=== PATIENT | female | born 1980 | race Caucasian/White ===

== ENCOUNTER 2016-11-07 13:47 | Emergency (ER) | payer MEDICAID ==
[2016-11-07 14:34] LABS: BASOPHILS 0.8 % (0.0-2.0); EOSINOPHILS 1.9 % (0-7); HEMATOCRIT 39.1 % (36.0-48.0); HEMOGLOBIN 13.4 g/dL (12-16); IMMATURE GRANULOCYTES 0.2 % (0-5); LYMPHOCYTES 43.5 % (15-50); MCH 31.4 pg (26.0-34.0); MCHC 34.3 g/dL (31.0-37.0); MCV 91.6 fL (80.0-100.0); MEAN PLATELET VOLUME 10.8 fL (7.4-10.4); MONOCYTES 6.3 % (2-11); NEUTROPHILS 47.3 % (40-80); RBC 4.27 10x6/uL (4.00-5.40); RDW 13.7 % (11.5-14.5); WBC 6.2 10x3/uL (4.8-10.8)
[2016-11-07 14:35] LABS: PLATELET COUNT 232 10x3/uL (130-400)
[2016-11-07 14:58] LABS: ALBUMIN 3.9 g/dL (3.4-5.0); ALKALINE PHOSPHATASE 47 U/L (46-116); ALT (SGPT) 21 U/L (10-68); BILIRUBIN - TOTAL 0.47 mg/dL (0.2-1.3); CALC OSMOLALITY 281 mosm/kg (275-300); CALCIUM 9.4 mg/dL (8.5-10.1); CARBON DIOXIDE 27.6 mmol/L (21.0-32.0); CHLORIDE - SERUM 105 mmol/L (98-107); CREATININE - SERUM 0.9 mg/dL (0.6-1.3); POTASSIUM - SERUM 3.3 mmol/L (3.5-5.1); PROTEIN - SERUM 7.7 g/dL (6.4-8.2); SODIUM 143 mmol/L (136-145); UREA NITROGEN 9 mg/dL (7-18); eGFR NON AFRICAN AMERICAN 76 mL/min (90-120)
[2016-11-07 15:01] LABS: GLUCOSE 60 mg/dL (74-106)
[2016-11-07 16:59] LABS: APPEARANCE CLEAR (CLEAR); BILIRUBIN NEGATIVE (NEGATIVE); COLOR YELLOW (YELLOW); GLUCOSE NEGATIVE (NEGATIVE); KETONE NEGATIVE (NEGATIVE); LEUKOCYTE ESTERASE NEGATIVE (NEGATIVE); NITRITE NEGATIVE (NEGATIVE); PROTEIN NEGATIVE (NEGATIVE); UROBILINOGEN NORMAL (NORMAL)
[2016-11-07 17:03] LABS: HCG URINE NEGATIVE (NEGATIVE)
== END 2016-11-07 17:22 | disposition home or self-care (01) ==
LOC: D.ER 13:47
PROVIDERS: Emergency Medicine
DX: F41.9 Anxiety disorder, unspecified (principal); F17.200 Nicotine dependence, unspecified, uncomplicated

== ENCOUNTER 2017-08-19 01:25 | Emergency (ER) | payer MEDICAID ==
[2017-08-19 01:55] LABS: EOSINOPHILS 4.6 % (0-7); HEMATOCRIT 38.1 % (36.0-48.0); HEMOGLOBIN 12.9 g/dL (12-16); IMMATURE GRANULOCYTES 0.2 % (0-5); LYMPHOCYTES 46.5 % (15-50); MCH 31.6 pg (26.0-34.0); MCHC 33.9 g/dL (31.0-37.0); MCV 93.4 fL (80.0-100.0); MEAN PLATELET VOLUME 10.8 fL (7.4-10.4); MONOCYTES 6.3 % (2-11); NEUTROPHILS 41.4 % (40-80); RBC 4.08 10x6/uL (4.00-5.40); RDW 13.3 % (11.5-14.5); WBC 6.1 10x3/uL (4.8-10.8)
[2017-08-19 01:57] LABS: PLATELET COUNT 179 10x3/uL (130-400)
[2017-08-19 02:08] LABS: ALBUMIN 3.7 g/dL (3.4-5.0); ALKALINE PHOSPHATASE 69 U/L (46-116); ALT (SGPT) 20 U/L (10-68); BILIRUBIN - TOTAL 0.26 mg/dL (0.2-1.3); CALC OSMOLALITY 281 mosm/kg (275-300); CARBON DIOXIDE 29.6 mmol/L (21.0-32.0); CHLORIDE - SERUM 105 mmol/L (98-107); CREATININE - SERUM 0.9 mg/dL (0.6-1.3); GLUCOSE 94 mg/dL (74-106); POTASSIUM - SERUM 3.8 mmol/L (3.5-5.1); PROTEIN - SERUM 7.5 g/dL (6.4-8.2); SODIUM 142 mmol/L (136-145); UREA NITROGEN 10 mg/dL (7-18); eGFR NON AFRICAN AMERICAN 75 mL/min (90-120)
[2017-08-19 02:11] LABS: CREATINE KINASE 61 UL (21-215); TROPONIN-I < 0.017 ng/mL (0.000-0.060)
[2017-08-19 02:19] LABS: AMYLASE - SERUM 73 U/L (25-115); LIPASE 112 U/L (73-393)
== END 2017-08-19 04:16 | disposition home or self-care (01) ==
LOC: D.ER 01:25
PROVIDERS: Family Medicine
DX: R07.89 Other chest pain (principal)

== ENCOUNTER 2019-01-03 14:19 | Emergency (ER) | payer MEDICAID ==
[~2019-01-03] VITALS: Ht 175.3 cm; Wt 51.4 kg
[2019-01-03 14:25] VITALS: Ht 175.3 cm; Wt 51.4 kg
[2019-01-03] MEDS ORDERED: ULTRAM50 MG PO (14:27)
[2019-01-03] MEDS ORDERED: GABAPENTIN100 MG PO (14:28)
[2019-01-03] MEDS ORDERED: VALIUM 2 MG TAB2 MG PO (15:33)
[2019-01-03] MEDS ORDERED: EC-NAPROSYN500 MG PO (15:34)
[2019-01-03 16:15] VITALS: BP 97/64
== END 2019-01-03 16:15 | disposition home or self-care (01) ==
LOC: D.ER 14:19
DX: S49.91XA Unspecified injury of right shoulder and upper arm, initial encounter (principal); X58.XXXA Exposure to other specified factors, initial encounter; Y93.89 Activity, other specified; Y92.019 Unspecified place in single-family (private) house as the place of occurrence of the external cause; S16.1XXA Strain of muscle, fascia and tendon at neck level, initial encounter; M62.838 Other muscle spasm

== ENCOUNTER 2019-04-16 16:52 | Emergency (ER) | payer MEDICAID ==
[~2019-04-16] VITALS: Ht 175.3 cm; Wt 50.9 kg
[~2019-04-16 16:52] MED LIST: EC-NAPROSYN500 MG PO; GABAPENTIN100 MG PO; ULTRAM50 MG PO; VALIUM 2 MG TAB2 MG PO
[2019-04-16 16:55] VITALS: Ht 175.3 cm; Wt 50.9 kg
[2019-04-16 17:56] LABS: BASOPHILS 0.2 % (0-2); HEMOGLOBIN 12.9 g/dL (12-16); IMMATURE GRANULOCYTES 0.1 % (0-5); LYMPHOCYTES 7.1 % (15-50); MCH 31.5 pg (26.0-34.0); MCHC 33.9 g/dL (31.0-37.0); MCV 92.9 fL (80.0-100.0); MEAN PLATELET VOLUME 10.8 fL (7.4-10.4); MONOCYTES 3.5 % (2-11); NEUTROPHILS 87.1 % (40-80); PLATELET COUNT 184 10x3/uL (130-400); RBC 4.09 10x6/uL (4.00-5.40); RDW 13.8 % (11.5-14.5); WBC 9.7 10x3/uL (4.8-10.8)
[2019-04-16 18:02] LABS: ALBUMIN 3.7 g/dL (3.4-5.0); ALKALINE PHOSPHATASE 61 U/L (46-116); ALT (SGPT) 17 U/L (10-68); BILIRUBIN - TOTAL 0.54 mg/dL (0.2-1.3); CALC OSMOLALITY 283 mosm/kg (275-300); CALCIUM 8.3 mg/dL (8.5-10.1); CARBON DIOXIDE 28.6 mmol/L (21.0-32.0); CHLORIDE - SERUM 107 mmol/L (98-107); CREATININE - SERUM 0.7 mg/dL (0.6-1.3); GLUCOSE 91 mg/dL (74-106); POTASSIUM - SERUM 3.6 mmol/L (3.5-5.1); PROTEIN - SERUM 7.1 g/dL (6.4-8.2); SODIUM 143 mmol/L (136-145); UREA NITROGEN 11 mg/dL (7-18); eGFR NON AFRICAN AMERICAN > 90 mL/min (90-120)
[2019-04-16 18:03] LABS: AMYLASE - SERUM 66 U/L (25-115); LIPASE 63 U/L (73-393)
[2019-04-16 18:04] LABS: TROPONIN-I < 0.017 ng/mL (0.000-0.060)
[2019-04-16 18:45] LABS: APPEARANCE CLEAR (CLEAR); BILIRUBIN NEGATIVE (NEGATIVE); COLOR YELLOW (YELLOW); GLUCOSE NEGATIVE (NEGATIVE); KETONE NEGATIVE (NEGATIVE); NITRITE NEGATIVE (NEGATIVE); PROTEIN NEGATIVE (NEGATIVE); SPECIFIC GRAVITY 1.015 (1.005-1.020); UROBILINOGEN NORMAL (NORMAL)
[2019-04-16] MEDS ORDERED: LOMOTIL 2.5-0.1 EAC1 PO (20:28)
[2019-04-16] MEDS ORDERED: FLAGYL500 MG PO (20:28)
[2019-04-16] MEDS ORDERED: CIPRO500 MG PO (20:28)
[2019-04-16 20:39] VITALS: BP 99/65
== END 2019-04-16 21:30 | disposition home or self-care (01) ==
LOC: D.ER 16:52
PROVIDERS: Emergency Medicine
DX: K52.9 Noninfective gastroenteritis and colitis, unspecified (principal)

== ENCOUNTER 2019-06-09 09:29 | Inpatient (IN) | payer SELFPAY ==
[~2019-06-09] VITALS: Ht 175.3 cm; Wt 48.6 kg
[~2019-06-09 09:29] MED LIST changes: +CIPRO500 MG PO; +FLAGYL500 MG PO; +LOMOTIL 2.5-0.1 EAC1 PO
[2019-06-09] MEDS ORDERED: XANAX1 MG PO (09:38)
[2019-06-09] MEDS ORDERED: TRAZODONE HCL150 MG PO (09:39)
[2019-06-09] MEDS ORDERED: TRILEPTAL300 MG PO (09:39)
[2019-06-09] MEDS ORDERED: MOBIC7.5 MG PO (09:40)
[2019-06-09 10:15] LABS: BASOPHILS 0.9 % (0-2); EOSINOPHILS 3.6 % (0-7); HEMATOCRIT 37.7 % (36.0-48.0); HEMOGLOBIN 13.2 g/dL (12-16); LYMPHOCYTES 35.9 % (15-50); MCV 91.5 fL (80.0-100.0); MEAN PLATELET VOLUME 10.5 fL (7.4-10.4); MONOCYTES 5.1 % (2-11); NEUTROPHILS 54.5 % (40-80); RBC 4.12 10x6/uL (4.00-5.40); RDW 13.7 % (11.5-14.5); WBC 5.5 10x3/uL (4.8-10.8)
[2019-06-09 10:21] LABS: PLATELET COUNT 222 10x3/uL (130-400)
[2019-06-09 10:28] LABS: ALBUMIN 3.9 g/dL (3.4-5.0); ANION GAP 9.5 mmol/L (8-16); BILIRUBIN - TOTAL 0.45 mg/dL (0.2-1.3); CALCIUM 9.4 mg/dL (8.5-10.1); CARBON DIOXIDE 30.5 mmol/L (21.0-32.0); CREATININE - SERUM 0.9 mg/dL (0.6-1.3); PROTEIN - SERUM 7.7 g/dL (6.4-8.2)
[2019-06-09 10:59] LABS: INR 1.13 (0.85-1.17)
[2019-06-09 11:09] VITALS: BP 97/61
[2019-06-09 11:35] VITALS: BP 86/60
[2019-06-09 12:08] VITALS: BP 98/65
[2019-06-09 12:48] VITALS: BP 100/67
[2019-06-09 13:30] VITALS: BP 105/66
--- NOTE | 2019-06-09 14:25 | MORECARE ---
CASE MANAGEMENT DISCHARGE SUMMARY PATIENT: MIGUELINA MCKEON UNIT: [id number] ADM DATE: 06/09/19 AGE: 39 : 84 SEX: F ROOM/BED: D.1201 AUTHOR: MARNI PADILLA PHYSICIAN: REFERRING PHYSICIAN: SUSAN LION MD DATE OF SERVICE: 06/09/19 Discharge Plan Patient Name: MIGUELINA MCKEON Facility: [facility]:[place] : 1980 Planned Disposition: Anticipated Discharge Date: Discharge Date: Expected LOS: Initial Reviewer: [email or web address] Initial Review Date: 06/09/2019 Generated: 06/09/19 3:25 pm Comments DCP- Discharge Planning Updated by [email or web address]: Paula Gambino on 06/09/19 1:[address] CM met with patient to discuss discharge planning. Patient gives permission to speak with Pastora Arteaga (sister) or spouse Vini Mckeon #[phone] (spouse does not understand French well). Patient lives independently at her home with her spouse. There 4-5 steps going into the home, no railing. PCP: Gaurang Harris APRN @[facility], Dr. Stas Ovalles. Pharmacy: [facility]. DME: none. Denies use of [employer] or [employer]. Patient feels safe in her home environment. Denies being hospitalized in the past 30 days. Patient's sister, Pastora Arteaga #[phone] upon discharge. CM will follow and assist with DC planning PRN. Paula Gambino RN, CM Patient Name: MIGUELINA MCKEON Page [id number] at 1425 All edits/amendments must be made on the electronic document DICTATION DATE: 06/09/191423 [employer] SUPERVISOR: ORLIN 06/09/191423 RPT#: [id number] DC DATE: STATUS: ADM IN [facility] [address] [place] [address] END OF REPORT
[2019-06-09 14:46] VITALS: BP 90/63; BMI 15.8
[2019-06-09 17:19] VITALS: Ht 175.3 cm; Wt 48.6 kg
[2019-06-09] MEDS ORDERED: LEVOFLOXACIN500 MG PO (17:20)
[2019-06-09] MEDS ORDERED: FLAGYL500 MG PO (17:21)
--- NOTE | 2019-06-10 09:38 | MORECARE ---
CASE MANAGEMENT DISCHARGE SUMMARY PATIENT: MIGUELINA MCKEON UNIT: [id number] ADM DATE: 06/09/19 AGE: 39 : 84 SEX: F ROOM/BED: D.1201 AUTHOR: MARNI PADILLA PHYSICIAN: REFERRING PHYSICIAN: SUSAN LION MD DATE OF SERVICE: 06/10/19 Discharge Plan Patient Name: MIGUELINA MCKEON Facility: [facility]:[place] : 1980 Planned Disposition: Anticipated Discharge Date: Discharge Date: 06/09/2019 Expected LOS: Initial Reviewer: [email or web address] Initial Review Date: 06/09/2019 Generated: 06/10/19 10:38 am DCP- Discharge Planning Updated by [email or web address]: Paula Gambino on 06/09/19 1:[address] CM met with patient to discuss discharge planning. Patient gives permission to speak with Pastora Arteaga (sister) or spouse Vini Mckeon #[phone] (spouse does not understand Greek well). Patient lives independently at her home with her spouse. There 4-5 steps going into the home, no railing. PCP: Gaurang Harris APRN @[facility], Dr. Stas Ovalles. Pharmacy: [facility]. DME: none. Denies use of [employer] or [employer]. Patient feels safe in her home environment. Denies being hospitalized in the past 30 days. Patient's sister, Pastora Arteaga #[phone] home upon discharge. CM will follow and assist with DC planning PRN. Paula Gambino RN, CM Last DP export: 06/09/19 1:25 p Patient Name: MIGUELINA MCKEON Page [id number] at 0938 All edits/amendments must be made on the electronic document DICTATION DATE: 06/10/19936 CROZE MACHINE OPERATOR: ORLIN 06/10/19936 RPT#: [id number] DC DATE:06/09/19 STATUS: DIS IN [place] [id number] [place] [address] END OF REPORT
== END 2019-06-09 18:29 | disposition home or self-care (01) | DRG 392 ==
LOC: D.ER 09:29 → D.M3 13:27
PROVIDERS: Family Medicine; ADMIT Family Medicine; ATTEND Family Medicine
DX: K52.9 Noninfective gastroenteritis and colitis, unspecified (principal); E87.6 Hypokalemia; Z72.0 Tobacco use

== ENCOUNTER 2019-12-10 08:38 | Emergency (ER) | payer SELFPAY ==
[~2019-12-10] VITALS: Ht 175.3 cm; Wt 50.9 kg
[~2019-12-10 08:38] MED LIST changes: +LEVOFLOXACIN500 MG PO; +MOBIC7.5 MG PO; +TRAZODONE HCL150 MG PO; +TRILEPTAL300 MG PO; +XANAX1 MG PO
[2019-12-10 08:41] VITALS: Ht 175.3 cm; Wt 50.9 kg
[2019-12-10 09:11] LABS: BASOPHILS 0.2 % (0-2); EOSINOPHILS 3.3 % (0-7); HEMOGLOBIN 12.4 g/dL (12-16); LYMPHOCYTES 26.7 % (15-50); MCH 31.6 pg (26.0-34.0); MCHC 33.5 g/dL (31.0-37.0); MCV 94.4 fL (80.0-100.0); MEAN PLATELET VOLUME 10.4 fL (7.4-10.4); NEUTROPHILS 63.8 % (40-80); RBC 3.92 10x6/uL (4.00-5.40); RDW 13.5 % (11.5-14.5); WBC 5.5 10x3/uL (4.8-10.8)
[2019-12-10 09:14] LABS: APTT 33.8 SECONDS (22.8-39.4); INR 1.07 (0.85-1.17); PROTIME 13.8 SECONDS (11.6-15.0)
[2019-12-10 09:17] LABS: CALC OSMOLALITY 275 mosm/kg (275-300); CALCIUM 8.6 mg/dL (8.5-10.1); CARBON DIOXIDE 27.9 mmol/L (21.0-32.0); CHLORIDE - SERUM 104 mmol/L (98-107); CREATININE - SERUM 0.9 mg/dL (0.6-1.3); GLUCOSE 75 mg/dL (74-106); POTASSIUM - SERUM 3.2 mmol/L (3.5-5.1); SODIUM 139 mmol/L (136-145); UREA NITROGEN 9 mg/dL (7-18); eGFR NON AFRICAN AMERICAN 75 mL/min (90-120)
[2019-12-10 09:18] LABS: PLATELET COUNT 160 10x3/uL (130-400)
[2019-12-10 09:35] LABS: ALBUMIN 3.6 g/dL (3.4-5.0); ALKALINE PHOSPHATASE 59 U/L (30-120); ALT (SGPT) 12 U/L (10-68); BILIRUBIN - TOTAL 0.23 mg/dL (0.2-1.3); CKMB 0.6 U/L (0.0-3.6); CREATINE KINASE 61 UL (21-215); MAGNESIUM - SERUM 1.9 mg/dL (1.8-2.4); PROTEIN - SERUM 6.9 g/dL (6.4-8.2); TROPONIN-I < 0.017 ng/mL (0.000-0.060)
[2019-12-10 11:21] VITALS: BP 95/57
[2019-12-10] MEDS ORDERED: CYCLOBENZAPRINE10 MG PO (12:25)
[2019-12-10] MEDS ORDERED: ACETAMINOPHEN500 M1 PO (12:25)
[2019-12-10] MEDS ORDERED: IBUPROFEN800 MG PO (12:25)
== END 2019-12-10 12:44 | disposition home or self-care (01) ==
LOC: D.ER 08:38
PROVIDERS: Family Medicine
DX: M94.0 Chondrocostal junction syndrome [Tietze] (principal); R07.89 Other chest pain